=== PATIENT | female | born 1940 ===

== ENCOUNTER 2017-03-26 15:23 | Inpatient (IN) | payer MEDICARE, OTHER ==
[~2017-03-26] VITALS: Ht 154.9 cm; Wt 69.5 kg
[2017-05-08] VITALS (12 sets, daily range): BP systolic 122–158; BP diastolic 67–98; PULSE 51–82; TEMP 96.2–98.2
[2017-05-08] MEDS ORDERED: VICODIN 5/300 PO (01:40)
[2017-05-08] MEDS ORDERED: ELIQUIS 5MG PO (01:42)
[2017-05-08] MEDS ORDERED: CALCIUM 600MG+D1 TAB PO (01:43)
[2017-05-08] MEDS ORDERED: MULTIPLE VITAMI1 CAP PO (01:43)
[2017-05-08] MEDS ORDERED: VITAMIN D3 PO (01:46)
[2017-05-08] MEDS ORDERED: MILK THISTLE PO (01:50)
[2017-05-08] MEDS ORDERED: ESTER C PO (01:53)
[2017-05-08] MEDS ORDERED: EPA FISH OIL1 SGL PO (01:54)
[2017-05-08] MEDS ORDERED: THE MEDICINE S200 M2 PO (01:55)
[2017-05-08] MEDS ORDERED: VITAMIN E (01:58)
[2017-05-08] MEDS ORDERED: MAGNESIUM OXID500 MG PO (02:00)
[2017-05-08] MEDS ORDERED: OSTEO-BI-FLEX 21 TAB PO (02:01)
[2017-05-08] MEDS ORDERED: SANDOSTATIN LAR30 M1 MR (02:02)
[2017-05-08] MEDS ORDERED: BETAPACE 80MG80 MG PO (02:05)
[2017-05-08] MEDS ORDERED: NORVASC 10MG10 MG PO (02:06)
[2017-05-08] MEDS ORDERED: DIOVAN 80MG80 MG PO (02:10)
[2017-05-08] MEDS ORDERED: PROTONIX 40MG T40 MG PO (02:11)
[2017-05-08] MEDS ORDERED: LOMOTIL 0.025 M1 TAB PO (02:12)
[2017-05-08] MEDS ORDERED: CLARITIN 1010 MG/TAB PO (02:13)
[2017-05-08] MEDS ORDERED: FLONASEALLERGY NS (02:14)
[2017-05-08] MEDS ORDERED: LASIX 20MG TABL20 MG PO (02:15)
[2017-05-08] MEDS ORDERED: KLOR-CON 88 ME1 PO (02:16)
[2017-05-08] MEDS ORDERED: AYR SALINE GEL1 NS (02:17)
[2017-05-08] MEDS ORDERED: TIROSINT25 MC1 PO (02:19)
[2017-05-08] MEDS ORDERED: MAGNESIUM GLUC500 MG PO (02:20)
[2017-05-08] MEDS ORDERED: FERROUS SU325 MG/TAB PO (05:44)
[2017-05-08] MEDS ORDERED: SYNTHROID 0.0.025 MG PO (12:10)
[2017-05-09 01:03] VITALS: BP 131/63; PULSE 63; TEMP 98.4
[2017-05-09 05:06] VITALS: BP 145/75; PULSE 56; TEMP 98.5
[2017-05-09 07:09] VITALS: BP 132/78; PULSE 58; TEMP 97.5
[2017-05-09 07:15] LABS: HEMOGLOBIN 12.3 g/dl (12.5-16.0)
[2017-05-09 07:29] LABS: HEMATOCRIT 35.8 % (37.0-47.0)
[2017-05-09 11:49] VITALS: BP 142/93; PULSE 59
[2017-05-09 16:14] VITALS: BP 134/81; PULSE 59; TEMP 98.1
[2017-05-09 19:46] VITALS: BP 115/70; PULSE 64; TEMP 97.9
[2017-05-10 00:40] VITALS: BP 111/61; PULSE 65; TEMP 97.8
[2017-05-10 04:00] VITALS: BP 128/77; PULSE 62; TEMP 98.1
[2017-05-10 07:40] VITALS: BP 129/72; PULSE 68; TEMP 98.7
[2017-05-10 08:13] LABS: HEMATOCRIT 33.1 % (37.0-47.0); HEMOGLOBIN 11.3 g/dl (12.5-16.0)
[2017-05-10 11:58] VITALS: BP 133/75; PULSE 66; TEMP 98.1
[2017-05-10 17:11] VITALS: BP 151/83; PULSE 90; TEMP 97.5
[2017-05-10 20:30] VITALS: BP 117/82; PULSE 71; TEMP 98.3
[2017-05-11 05:41] VITALS: BP 123/70; PULSE 63; TEMP 98.6
[2017-05-11 07:44] VITALS: BP 122/70; PULSE 63; TEMP 98.5
[2017-05-11 08:11] LABS: HEMATOCRIT 32.9 % (37.0-47.0); HEMOGLOBIN 10.9 g/dl (12.5-16.0)
[2017-05-11 11:02] VITALS: BP 128/73; PULSE 64; TEMP 98.8
== END 2017-05-11 13:50 | disposition home or self-care (01) | DRG 470 ==
LOC: JCC 05-08 05:15
PROVIDERS: Orthopaedic Surgery
PROC: 0SRD0J9 Replacement of Left Knee Joint with Synthetic Substitute, Cemented, Open Approach (ICD-10-PCS; principal; 2017-05-08 07:30)
DX: M17.12 Unilateral primary osteoarthritis, left knee (principal); I10 Essential (primary) hypertension; I48.0 Paroxysmal atrial fibrillation; Z95.0 Presence of cardiac pacemaker
CPT/HCPCS: A9284; C1713; C1776; J0690; J1100; J2250; J2370; J2704; J3010; J7120